=== PATIENT | female | born 1950 | race Caucasian/White ===

== ENCOUNTER 2016-07-01 07:56 | Day surgery (SDC) | payer MEDICARE ==
[2016-06-28 14:10] LABS: BLOOD UREA NITROGEN 14 mg/dL (7-18)
[~2016-07-01] VITALS: Ht 162.6 cm; Wt 91.0 kg
[~2016-07-01 07:56] MED LIST: ALBUTEROL INH INH; ASCO500T8 PO; BUPIVACAINE/PF-EPI 0.25% 1:200K ONE; CHOL10003 PO; MULT-516 PO; NONE PER PT; PSYL0.5215 PO; VITAMIN E PO
[2016-07-01] MEDS ORDERED: LIDOCAINE 1%, 2ML ONE (10:00)
[2016-07-01 10:11] VITALS: BP 144/86
[2016-07-01] MEDS ORDERED: LACTATED RINGERS 1,000 ML IV SCH ×2 (10:11)
[2016-07-01] MEDS ORDERED: DIPH25CA61 PO (10:18)
[2016-07-01] MEDS ORDERED: FENTANYL PF 250 MCG/5ML ONE (10:25)
[2016-07-01] MEDS ORDERED: MIDAZOLAM 1 MG/ML, 2ML ONE (10:25)
[2016-07-01] MEDS ORDERED: CEFAZOLIN 1,000 MG ONE (10:59)
[2016-07-01] MEDS ORDERED: DEXAMETHASONE 4 MG/ML, 1ML ONE (10:59)
[2016-07-01] MEDS ORDERED: PROPOFOL 10 MG/ML, 20ML ONE (10:59)
[2016-07-01] MEDS ORDERED: ONDANSETRON 2MG/ML, 2ML ONE (10:59)
[2016-07-01] MEDS ORDERED: SODIUM BICARBONATE 4.2%, 5ML ONE (11:32)
[2016-07-01] MEDS ORDERED: LIDOCAINE 1%, 20ML ONE (11:32)
[2016-07-01] MEDS ORDERED: HYDROcodone/APAP 7.5-325MG/15ML UDC PO PRN (12:00)
[2016-07-01] MEDS ORDERED: FENTANYL PF 100 MCG/2ML IV PRN (12:00)
[2016-07-01] MEDS ORDERED: KETOROLAC 30 MG/1 ML IV PRN (12:00)
[2016-07-01] MEDS ORDERED: ALBUTEROL/IPRATROPIUM 2.5MG/0.5MG, 3 ML NPPB PRN (12:00)
[2016-07-01] MEDS ORDERED: MIDAZOLAM 1 MG/ML, 2ML IV PRN (12:00)
[2016-07-01] MEDS ORDERED: LABETALOL 5MG/ML, 20ML IV PRN (12:00)
[2016-07-01] MEDS ORDERED: METOCLOPRAMIDE 5 MG/ML, 2ML IV PRN (12:00)
[2016-07-01] MEDS ORDERED: HYDROmorphone 1 MG/ML, 1ML IV PRN (12:00)
[2016-07-01] MEDS ORDERED: MEPERIDINE/PF 25MG/0.5ML IVPush PRN (12:00)
[2016-07-01] MEDS ORDERED: ACETAMINOPHEN 325 MG TABLET PO PRN (12:00)
[2016-07-01] MEDS ORDERED: PROMETHAZINE 25 MG/ML, 1ML IV PRN (12:00)
[2016-07-01] MEDS ORDERED: ONDANSETRON 2MG/ML, 2ML IVPush PRN (12:00)
[2016-07-01] MEDS ORDERED: hydrALAzine 20 MG/ML, 1ML IV PRN (12:00)
[2016-07-01] MEDS ORDERED: HYDROcodone/APAP 7.5-325MG/15ML UDC ONE (12:23)
== END 2016-07-01 13:55 ==
LOC: STAR 07:56 → OUT 13:55
PROVIDERS: ATTEND Surgery
DX: D05.12 Intraductal carcinoma in situ of left breast (principal); J45.909 Unspecified asthma, uncomplicated
CPT/HCPCS: 19281; 19301; 36415; 80048; 88307; 93005; J0690; J1100; J2250; J2405; J2704; J3010; J3490; J7120

== ENCOUNTER → 2017-05-16 | Outpatient (CLI) | payer MEDICARE ==
[~2017-05-16] MED LIST changes: -BUPIVACAINE/PF-EPI 0.25% 1:200K ONE; +DIPH25CA61 PO
== END ==
LOC: CFH 10:51
PROVIDERS: ATTEND Radiology Radiation Oncology
DX: Z12.31 Encounter for screening mammogram for malignant neoplasm of breast (principal); Z85.3 Personal history of malignant neoplasm of breast
CPT/HCPCS: 77067

== ENCOUNTER → 2017-05-31 | Outpatient (CLI) | payer MEDICARE | END | disposition home or self-care (01) | LOC: ROC 09:46 | PROVIDERS: ATTEND Radiology Radiation Oncology | DX: Z08 Encounter for follow-up examination after completed treatment for malignant neoplasm (principal); D05.12 Intraductal carcinoma in situ of left breast; Z92.3 Personal history of irradiation; Z98.890 Other specified postprocedural states | CPT/HCPCS: 99213; G0463 ==

== ENCOUNTER 2018-04-17 09:48 | Outpatient (CLI) | payer MEDICARE | END 2018-04-17 23:59 | disposition home or self-care (01) | LOC: CFH 09:48 | PROVIDERS: ATTEND Radiology Radiation Oncology | DX: Z12.31 Encounter for screening mammogram for malignant neoplasm of breast (principal); Z85.3 Personal history of malignant neoplasm of breast | CPT/HCPCS: 77063; 77067 ==

== ENCOUNTER → 2018-05-05 | Outpatient (CLI) | payer MEDICARE | END | disposition home or self-care (01) | LOC: CFH 10:56 | PROVIDERS: ATTEND Radiology Radiation Oncology | DX: C50.911 Malignant neoplasm of unspecified site of right female breast (principal); C50.912 Malignant neoplasm of unspecified site of left female breast; N95.9 Unspecified menopausal and perimenopausal disorder | CPT/HCPCS: 77080; 77065 ==

== ENCOUNTER → 2018-05-15 | Outpatient (CLI) | payer MEDICARE | END | disposition home or self-care (01) | LOC: ROC 07:08 | PROVIDERS: ATTEND Radiology Radiation Oncology | DX: Z08 Encounter for follow-up examination after completed treatment for malignant neoplasm (principal); D05.12 Intraductal carcinoma in situ of left breast; Z92.3 Personal history of irradiation | CPT/HCPCS: 99213; G0463 ==

== ENCOUNTER 2020-06-05 08:33 | Outpatient (CLI) | payer MEDICARE | END 2020-06-05 23:59 | disposition home or self-care (01) | LOC: CFH 08:33 | PROVIDERS: ATTEND Licensed Practical Nurse | DX: N60.01 Solitary cyst of right breast (principal); N95.8 Other specified menopausal and perimenopausal disorders; N64.9 Disorder of breast, unspecified; M85.9 Disorder of bone density and structure, unspecified | CPT/HCPCS: 76642; 77080; 77065 ==